=== PATIENT | male | born 1990 | race Caucasian/White ===

== ENCOUNTER 2017-04-08 23:55 | Emergency (ER) | payer OTHER ==
[2017-04-09] MEDS ORDERED: Lidocaine 1% 20 ML MDV ONE (00:04)
[2017-04-09] MEDS ORDERED: Bacitracin Zinc 1 Packet ONE (00:27)
== END 2017-04-09 00:45 ==
LOC: NAV ERS 23:55
DX: S01.81XA Laceration without foreign body of other part of head, initial encounter (principal); S16.1XXA Strain of muscle, fascia and tendon at neck level, initial encounter; E78.5 Hyperlipidemia, unspecified; Z79.82 Long term (current) use of aspirin; Z79.899 Other long term (current) drug therapy; W22.8XXA Striking against or struck by other objects, initial encounter
CPT/HCPCS: 12013; J2001

== ENCOUNTER 2017-04-22 20:52 | Emergency (ER) | payer OTHER ==
[2017-04-22] MEDS ORDERED: Acetaminophen/Codeine 30-300mg Tablet ONE (23:06)
--- NOTE | 2017-04-22 23:23 | RAD ---
THREE VIEWS THORACIC SPINE HISTORY: Fall and seizures. Back pain. TECHNIQUE: AP, lateral, and coned down views of the thoracic spine are obtained. FINDINGS: The thoracic spine is unremarkable. No evidence of thoracic spine fractures or bony lesions seen. IMPRESSION: Normal thoracic spine radiographs. POS: [facility]
--- NOTE | 2017-04-22 23:25 | RAD ---
FOUR VIEWS CERVICAL SPINE HISTORY: Fall and trauma. TECHNIQUE: AP, lateral, open mouth odontoid, and Swimmer's views of the cervical spine obtained. FINDINGS: Cervical spine alignment is within normal limits. No evidence of cervical spine fractures, subluxat ions, or bony lesions seen. IMPRESSION: Normal four views cervical spine. POS: [facility]
== END 2017-04-22 23:20 ==
LOC: NAV ERS 20:52
DX: S01.81XA Laceration without foreign body of other part of head, initial encounter (principal); S16.1XXA Strain of muscle, fascia and tendon at neck level, initial encounter; S29.012A Strain of muscle and tendon of back wall of thorax, initial encounter; R56.9 Unspecified convulsions; I49.9 Cardiac arrhythmia, unspecified; E78.5 Hyperlipidemia, unspecified; E78.00 Pure hypercholesterolemia, unspecified; I45.6 Pre-excitation syndrome; W01.198A Fall on same level from slipping, tripping and stumbling with subsequent striking against other object, initial encounter
CPT/HCPCS: 72040; 72072